=== PATIENT | female | born 1990 | race African-American/Black ===

== ENCOUNTER 2018-03-03 16:55 | Inpatient (IN) | payer MEDICAID, OTHER ==
[~2018-03-03] VITALS: Ht 157.5 cm; Wt 54.9 kg
[2018-03-03 19:21] LABS: HEMATOCRIT. 33.6 % (36.0-48.0); HEMOGLOBIN. 10.6 g/dL (12.0-16.0); MEAN CORPUSCULAR HEMOGLOBIN 25.7 pg (28.0-32.0); MEAN CORPUSCULAR VOLUME 81.9 fL (81.0-99.0); MEAN PLATELET VOLUME 7.4 fl (7.4-10.4); PLATELET 299 x1000/uL (130-400); RED BLOOD CELL COUNT 4.11 mill/uL (4.2-5.4); RED CELL DISTRIBUTION WIDTH 14.7 % (11.6-14.6)
[2018-03-03 19:26] LABS: CHLORIDE 105 mEq/L (98-107)
[2018-03-03 19:39] LABS: B-HCG QUANTITATIVE 292 mIU/mL (<3)
[2018-03-03 19:50] LABS: PLATELET ESTIMATE NORMAL
[2018-03-03] MEDS ORDERED: SODIUM CHLORIDE 0.9% 1,000 ML IV ONE (20:09)
[2018-03-03] MEDS ORDERED: MORPHINE SULFATE 4 MG/ML CPJ (NOT FOR IM USE) IV ONE (20:15)
[2018-03-03] MEDS ORDERED: MORPHINE SULFATE 2 MG/ML CPJ (NOT FOR IM USE) IV NR (21:00)
[2018-03-03] MEDS: ACETAMINOPHEN 325MG TABLET PO PRN (21:22)
[2018-03-03] MEDS ORDERED: SUCCINYLCHOLINE CHLORIDE 200MG/10ML IV ONE (21:28)
[2018-03-03] MEDS ORDERED: PHENYLEPHRINE HCL 10 MG/ML 1ML (IV VIAL) IV ONE (21:29)
[2018-03-03] MEDS ORDERED: SODIUM CHLORIDE 0.9% 10ML VIAL ONE (21:29)
[2018-03-03] MEDS ORDERED: ROCURONIUM BROMIDE 10MG/ML VIAL 5ML IV ONE (21:31)
[2018-03-03] MEDS ORDERED: ETOMIDATE 2MG/ML 10ML VIAL IV ONE (21:33)
[2018-03-03] MEDS ORDERED: LIDOCAINE HCL/PF 1% 10 MG/ML 5ML VIAL ONE (21:33)
[2018-03-03] MEDS ORDERED: MIDAZOLAM HCL 2 MG/2 ML VIAL ONE (21:36)
[2018-03-03] MEDS ORDERED: FENTANYL CITRATE/PF 50MCG/ML 2ML VIAL ONE (21:36)
[2018-03-03] MEDS ORDERED: CEFAZOLIN 2000MG PREMIX 50 ML IV NR (22:15)
[2018-03-03 23:10] LABS: CLARITY URINE CLEAR (CLEAR); COLOR URINE YELLOW (YELLOW); KETONES URINE 3+ (NEGATIVE); LEUKOCYTE ESTERASE URINE NEGATIVE (NEGATIVE); NITRITE URINE NEGATIVE (NEGATIVE); OCCULT BLOOD URINE 2+ (NEGATIVE); PROTEIN URINE NEGATIVE (NEGATIVE); SPECIFIC GRAVITY URINE 1.007 (1.005-1.030); UROBILINOGEN URINE 0.2 E.U./dL (0.2-1.0)
[2018-03-03] MEDS ORDERED: ONDANSETRON HCL 4MG/2ML INJ ONE (23:26)
[2018-03-03] MEDS ORDERED: METOCLOPRAMIDE HCL 10MG/2ML VIAL ONE (23:26)
[2018-03-04] MEDS ORDERED: NEOSTIGMINE METHYLSULFATE 1MG/ML 10 ML VIAL ONE (00:10)
[2018-03-04] MEDS ORDERED: GLYCOPYRROLATE 0.2 MG/ML 2ML VIAL ONE (00:11)
[2018-03-04] MEDS ORDERED: NIFEDIPINE 10MG CAPSULE ONE (00:11)
[2018-03-04] MEDS ORDERED: ACETAMINOPHEN 650MG SUPP PR PRN (00:30)
[2018-03-04] MEDS ORDERED: ONDANSETRON HCL 4MG/2ML INJ IV PRN (00:30)
[2018-03-04] MEDS ORDERED: HYDROMORPHONE HCL/PF 2MG/ML CPJ IV PRN (01:00)
[2018-03-04 04:00] VITALS: BP 117/72
[2018-03-04] MEDS: HYDROMORPHONE HCL/PF 2MG/ML CPJ IV PRN ×4 (05:52→21:07)
[2018-03-04 06:33] VITALS: BP 117/69
[2018-03-04] MEDS ORDERED: IBUP-516 MT (06:52)
[2018-03-04 08:00] VITALS: BP 107/55
[2018-03-04] MEDS: DEXT 5%/0.45% NACL KCL 20MEQ/L 1,000 ML IV SCH ×2 (09:20→13:56)
[2018-03-04] MEDS: CEFAZOLIN 1000MG PREMIX 50 ML IV SCH ×2 (09:21→13:55)
[2018-03-04] MEDS: KETOROLAC 30MG/ML VIAL IV SCH ×3 (09:22→18:43)
[2018-03-04 12:00] VITALS: BP 101/67
[2018-03-04 12:16] LABS: BASOPHILS % 0.3 % (0.0-2.0); EOSINOPHILS % 0.2 % (0.0-5.0); HEMATOCRIT. 29.4 % (36.0-48.0); HEMOGLOBIN. 9.7 g/dL (12.0-16.0); LYMPHOCYTES % 10.1 % (20.0-50.0); MEAN CORPUSCULAR VOLUME 81.7 fL (81.0-99.0); MEAN PLATELET VOLUME 8.1 fl (7.4-10.4); MONOCYTES % 9.8 % (2.0-8.0); NEUTROPHILS % 79.6 % (40.0-76.0); PLATELET 243 x1000/uL (130-400); RED CELL DISTRIBUTION WIDTH 14.5 % (11.6-14.6)
[2018-03-04 16:00] VITALS: BP 102/66
[2018-03-04 20:00] VITALS: BP 103/55
[2018-03-05] VITALS: BP 114/62
[2018-03-05] MEDS: KETOROLAC 30MG/ML VIAL IV SCH ×5 (00:12→23:48)
[2018-03-05] MEDS: DEXT 5%/0.45% NACL KCL 20MEQ/L 1,000 ML IV SCH ×3 (00:12→21:34)
[2018-03-05 04:00] VITALS: BP 123/72
[2018-03-05 08:00] VITALS: BP 109/57
[2018-03-05] MEDS: HYDROMORPHONE HCL/PF 2MG/ML CPJ IV PRN ×2 (08:09→15:29)
[2018-03-05 08:18] LABS: BASOPHILS % 0.2 % (0.0-2.0); EOSINOPHILS % 0.8 % (0.0-5.0); HEMATOCRIT. 30.8 % (36.0-48.0); HEMOGLOBIN. 9.9 g/dL (12.0-16.0); LYMPHOCYTES % 9.8 % (20.0-50.0); MEAN CORPUSCULAR HEMOGLOBIN 26.4 pg (28.0-32.0); MEAN CORPUSCULAR VOLUME 81.8 fL (81.0-99.0); MONOCYTES % 8.7 % (2.0-8.0); NEUTROPHILS % 80.5 % (40.0-76.0); PLATELET 223 x1000/uL (130-400); RED BLOOD CELL COUNT 3.77 mill/uL (4.2-5.4); RED CELL DISTRIBUTION WIDTH 14.3 % (11.6-14.6)
[2018-03-05 09:51] LABS: CHLORIDE 110 mEq/L (98-107)
[2018-03-05 12:00] VITALS: BP 103/59
[2018-03-05] MEDS: ACETAMINOPHEN 325MG TABLET PO PRN (13:42)
[2018-03-05 16:00] VITALS: BP 111/61
[2018-03-05] MEDS ORDERED: ZOLPIDEM TARTRATE 5MG TABLET PO PRN (18:45)
[2018-03-05] MEDS ORDERED: BISACODYL 10MG SUPP PR PRN (18:45)
[2018-03-05] MEDS ORDERED: ACETAMINOPHEN 325MG TABLET PO PRN (19:45)
[2018-03-05 20:00] VITALS: BP 106/61
[2018-03-06] VITALS: BP 113/63
[2018-03-06 04:00] VITALS: BP 126/71
[2018-03-06] MEDS: KETOROLAC 30MG/ML VIAL IV SCH (05:20)
[2018-03-06 07:27] LABS: BASOPHILS % 0.4 % (0.0-2.0); EOSINOPHILS % 3.2 % (0.0-5.0); HEMATOCRIT. 28.8 % (36.0-48.0); HEMOGLOBIN. 9.2 g/dL (12.0-16.0); LYMPHOCYTES % 12.7 % (20.0-50.0); MEAN CORPUSCULAR HEMOGLOBIN 26.4 pg (28.0-32.0); MEAN CORPUSCULAR VOLUME 82.6 fL (81.0-99.0); MEAN PLATELET VOLUME 8.2 fl (7.4-10.4); MONOCYTES % 10.9 % (2.0-8.0); NEUTROPHILS % 72.8 % (40.0-76.0); PLATELET 212 x1000/uL (130-400); RED BLOOD CELL COUNT 3.49 mill/uL (4.2-5.4); RED CELL DISTRIBUTION WIDTH 14.4 % (11.6-14.6)
[2018-03-06 07:52] LABS: CHLORIDE 110 mEq/L (98-107)
[2018-03-06 08:00] VITALS: BP 90/42
[2018-03-06] MEDS ORDERED: IBUPROFEN 600MG TABLET PO PRN (08:45)
[2018-03-06] MEDS: MAGNESIUM HYDROXIDE 400MG/5ML 30ML UDC PO SCH (09:31)
[2018-03-06] MEDS: DEXT 5%/0.45% NACL KCL 20MEQ/L 1,000 ML IV SCH (09:33)
[2018-03-06 12:00] VITALS: BP 106/52
[2018-03-06] MEDS: HYDROCODONE/ACETAMINOPHEN 10/325MG TABLET PO SCH ×3 (12:16→23:23)
[2018-03-06 16:00] VITALS: BP 103/58
[2018-03-06] MEDS: BISACODYL 10MG SUPP PR SCH (17:31)
[2018-03-06 20:00] VITALS: BP 98/56
[2018-03-07] VITALS: BP 95/55
[2018-03-07 04:00] VITALS: BP 94/53
[2018-03-07] MEDS: HYDROCODONE/ACETAMINOPHEN 10/325MG TABLET PO SCH (05:30)
[2018-03-07 08:00] VITALS: BP 108/67
[2018-03-07] MEDS: BISACODYL 10MG SUPP PR SCH (08:45)
[2018-03-07] MEDS: MAGNESIUM HYDROXIDE 400MG/5ML 30ML UDC PO SCH (08:45)
[2018-03-07 09:39] VITALS: BP 108/67
== END 2018-03-07 11:39 | disposition home or self-care (01) | DRG 545 ==
LOC: ER 16:55 → EDBEDREQTM 20:50 → EDBEDREQ 20:50 → ENRESERV 21:58 → 6EST 03-04 00:53
PROVIDERS: ADMIT Internal Medicine; ATTEND Internal Medicine
PROC: 10T20ZZ Resection of Products of Conception, Ectopic, Open Approach (ICD-10-PCS; principal; 2018-03-04)
PROC: 0UJ84ZZ Inspection of Fallopian Tube, Percutaneous Endoscopic Approach (ICD-10-PCS; 2018-03-04)
PROC: 0UB60ZZ Excision of Left Fallopian Tube, Open Approach (ICD-10-PCS; 2018-03-04)
DX: O00.102 Left tubal pregnancy without intrauterine pregnancy (principal); O99.321 Drug use complicating pregnancy, first trimester; D64.9 Anemia, unspecified; E87.6 Hypokalemia; F12.10 Cannabis abuse, uncomplicated; O99.011 Anemia complicating pregnancy, first trimester; O99.281 Endocrine, nutritional and metabolic diseases complicating pregnancy, first trimester; O99.341 Other mental disorders complicating pregnancy, first trimester; F32.9 Major depressive disorder, single episode, unspecified; Z91.5 Personal history of self-harm; Z53.31 Laparoscopic surgical procedure converted to open procedure
CPT/HCPCS: 36415; 76801; 80048; 84702; 86850; 86900; 88305; 96374; 99285; A4216; J0330; J0690; J1170; J1885; J2250; J2270; J2370; J2405; J2710; J2765; J3010; J3490; J7030

== ENCOUNTER 2018-03-25 14:48 | Emergency (ER) | payer MEDICAID ==
[~2018-03-25] VITALS: Ht 157.5 cm; Wt 61.3 kg
[~2018-03-25 14:48] MED LIST: IBUP-516 MT
[2018-03-25 16:27] VITALS: BP 100/62
== END 2018-03-25 17:02 | disposition home or self-care (01) ==
LOC: ER 16:50
DX: Z48.02 Encounter for removal of sutures (principal)
CPT/HCPCS: 99281